=== PATIENT | male | born 1960 | race Caucasian/White ===

== ENCOUNTER 2016-11-06 10:29 | Day surgery (SDC) | payer BC ==
[~2016-11-06] VITALS: Ht 185.4 cm; Wt 95.0 kg
[2016-11-06] MEDS ORDERED: CEFAZOLIN 2 GM/50 ML (PMX) 50 ML IVPB ONE (12:00)
[2016-11-06] MEDS ORDERED: SOD CHLORIDE 0.9% 1,000 ML IV SCH (12:00)
[2016-11-06 12:57] VITALS: Ht 185.4 cm; Wt 95.0 kg
[2016-11-06 12:58] VITALS: BP 126/80; PULSE 65; RESP 20
[2016-11-06 12:58] LABS: BASOPHIL # 0.1 10^3/ul (0.0-0.1); BASOPHILS % 1.2 % (0.0-2.0); EOSINOPHILS # 0.3 10^3/ul (0.0-0.5); EOSINOPHILS % 4.3 % (0.0-7.0); HEMATOCRIT 37.9 % (42.0-52.0); HEMOGLOBIN 13.7 g/dl (14.0-18.0); LYMPHOCYTES # 1.7 10^3/ul (0.8-2.9); MEAN CORPUSCULAR HEMOGLOBIN 31.6 pg (29.0-33.0); MEAN CORPUSCULAR HGB CONC 36.1 g/dl (32.0-37.0); MEAN CORPUSCULAR VOLUME 87.5 fl (82.0-101.0); MEAN PLATELET VOLUME 9.7 fl (7.4-10.4); MONOCYTE # 0.5 10^3/ul (0.3-0.9); MONOCYTES % 8.7 % (0.0-11.0); NEUTROPHIL # 3.4 10^3/ul (1.6-7.5); NEUTROPHILS % 56.5 % (39.0-77.0); PLATELET COUNT 197 10^3/UL (140-415); RED BLOOD COUNT 4.33 10^6/ul (4.70-6.10); RED CELL DISTRIBUTION WIDTH 11.4 % (11.5-14.5)
[2016-11-06 13:15] LABS: PARTIAL THROMBOPLASTIN TIME 27.7 Sec (25.0-35.0); PROTIME 13.2 Sec (12.2-14.2)
[2016-11-06 13:23] LABS: ALBUMIN 4.2 g/dl (3.3-4.9); ALBUMIN/GLOBULIN RATIO 1.68; BILIRUBIN,INDIRECT 1.2 mg/dl (0-1.1); BILIRUBIN,TOTAL 1.2 mg/dl (0.2-1.3); TOTAL PROTEIN 6.7 g/dl (6.1-8.1)
[2016-11-06 13:28] LABS: CALCIUM 9.5 mg/dl (8.4-10.2); CREATININE 0.94 mg/dl (0.61-1.24); POTASSIUM 3.9 mmol/L (3.5-5.1)
[2016-11-06] MEDS ORDERED: METOCLOPRAMIDE 10 MG INJ IV PRN (14:30)
[2016-11-06] MEDS ORDERED: ONDANSETRON 4 MG INJ IV PRN (14:30)
[2016-11-06] MEDS ORDERED: FENTAnyl 50 MCG/ML VIAL IV PRN ×2 (14:30)
[2016-11-06] MEDS ORDERED: MEPERIDINE 25 MG INJ IV PRN (14:30)
[2016-11-06] MEDS ORDERED: DIPHENHYDRAMINE 50 MG INJ IV PRN (14:30)
[2016-11-06] MEDS ORDERED: HYDROmorphONE (0.2 MG/ML) 10ML SYG IV PRN ×2 (14:30)
[2016-11-06] MEDS ORDERED: BUPIVACAINE 0.5% (SDV) 30 ML INJ ONE (15:14)
[2016-11-06] MEDS ORDERED: LIDOCAINE 2% (MDV) 20 ML INJ ONE (15:14)
[2016-11-06] MEDS ORDERED: MIDAZOLAM 1 MG/ML 2 ML INJ ONE (15:33)
[2016-11-06] MEDS ORDERED: FENTAnyl 50 MCG/ML VIAL ONE (15:33)
[2016-11-06] MEDS ORDERED: CEFAZOLIN 1 GM INJ ONE (15:42)
--- NOTE | 2016-11-06 15:56 | OPR ---
Date/Time of Note Date/Time of Note DATE: 11/06/16 TIME: 15:52 Operative Report Procedure Date: Nov 06, 2016 Preoperative Diagnosis back mass Postoperative Diagnosis back mass Operation Performed 1.excision of back mass 4 cm incision 4 x 2 cm mass 2. localized adjacent tissue transfer with the use of skin flaps 3. therapeutic injection of subcutaneous marcaine cpt code 34445 Surgeon: Char YEE Anesthesia Type: MAC Estimated Blood Loss: minimal Specimens back mass Grafts/Implants: none Complications: no Indications This is a 56-year-old male with a back mass. He requires surgical excision is back mass. Risks alternatives benefits and percent were discussed the patient. Patient expresses understanding consents to the operation. Procedure Description Patient is taken to the OR and prepped and draped in usual sterile fashion. Surgical timeout was performed IV antibiotics are given. Elliptical incision is made with a 15 blade over the back mass after local anesthesia was infiltrated all around the mass. Dissection cautery was carried down to the deep tissues. The mass is excised en bloc. The surgical site was irrigated. Due to large tissue defect localized adjacent tissue transfer with these of skin flaps was performed superior and inferior flaps are reapproximated multilayer fashion with interrupted 3-0 Vicryl and skin alberto. Dry dressings were applied. Char YEE Nov 06, 2016 15:56
[2016-11-06 15:57] VITALS: BP 123/83; PULSE 56; RESP 14
[2016-11-06] MEDS ORDERED: HYDROCODONE/APAP (5/325) TAB PO ONE (16:00)
[2016-11-06 16:02] VITALS: BP 128/85; PULSE 54; RESP 17
[2016-11-06 16:07] VITALS: BP 134/88; PULSE 54; RESP 15
--- NOTE | 2016-11-06 16:07 | RADRPT ---
PROCEDURE: XR Chest. CLINICAL INDICATION: Preop. TECHNIQUE: Single frontal chest x-ray. COMPARISON: None available. FINDINGS: The cardiomediastinal silhouette is unremarkable. No pneumothorax, pleural effusion or consolidation is seen. There are multilevel degenerative changes of thoracic spine with decreased disk spaces and osteophyt osis. IMPRESSION: 1. No acute cardiopulmonary abnormality. RPTAT: QQ .Maribell Anderson MD, MD Date Time Electronically viewed and signed by .Maribell Anderson MD, on 11/06/2016 16:06 .N/
[2016-11-06 16:12] VITALS: BP 138/81; PULSE 52; RESP 14
[2016-11-06 16:35] VITALS: BP 140/69; PULSE 57; RESP 18
--- NOTE | 2016-11-06 19:31 | RADRPT ---
Vent Rate: 58 bpm RR Interval: 0 msec NC Interval: 194 msec QRS Duration: 98 msec QT Interval: 438 msec QTC Interval: 429 msec P-R-T [place]: 33 - 65 - 61 degrees Sinus bradycardia with sinus arrhythmia Otherwise normal ECG Electronically Signed By: Ritesh Pérez [id number]
== END 2016-11-06 17:10 | disposition home or self-care (01) ==
LOC: SDS 10:29
PROVIDERS: ATTEND Surgery
DX: R22.2 Localized swelling, mass and lump, trunk (principal); L72.0 Epidermal cyst
CPT/HCPCS: 14000; 71010; 80053; 85025; 85610; 85730; 88307; 93005; J0690; J2250; J3010; Z7512; Z7610